=== PATIENT | female | born 1980 | race Caucasian/White ===

== ENCOUNTER 2017-10-09 05:28 | Day surgery (SDC) | payer OTHER ==
[~2017-10-09] VITALS: Ht 165.1 cm; Wt 91.6 kg
[2017-10-09] MEDS ORDERED: CEFAZOLIN 1 GM IVPB PREMIX 50 ML IV ONE (06:25)
[2017-10-09] MEDS ORDERED: CEFAZOLIN SOD 1 GM/ ISO 50 ML PREMIX IV ONE (07:00)
[2017-10-09] MEDS ORDERED: LR 1,000 ML IV SCH (09:37)
[2017-10-09] MEDS ORDERED: MEPERIDINE HCL/PF 25 MG/ML DISP.SYRIN IVP PRN (09:45)
[2017-10-09] MEDS ORDERED: HYDROmorphone 1 MG INJ. 1 MG/ML AMPUL IVP PRN (09:45)
[2017-10-09] MEDS ORDERED: HYDROmorphone 2 MG/ML VIAL IVP PRN ×2 (09:45)
[2017-10-09] MEDS ORDERED: ONDANSETRON HCL 4 MG/2 ML VIAL IVP PRN (10:30)
[2017-10-09] MEDS ORDERED: IBUPROFEN 800 MG TABLET PO PRN (10:30)
[2017-10-09] MEDS ORDERED: OXYCODONE/ACETAMINOPHEN 5-325 TABLET PO PRN ×2 (10:30)
[2017-10-09] MEDS ORDERED: LR 1,000 ML IV.SOLN IV ONE (10:50)
[2017-10-09] MEDS ORDERED: BUPIVACAINE /PF 0.5% 30 ML VIAL INJ ONE (10:50)
[2017-10-09] MEDS ORDERED: NS 1000 ML BAG IV ONE (10:50)
[2017-10-09] MEDS ORDERED: NS IRRIG SOLN 1000 ML IR ONE (10:50)
[2017-10-09] MEDS ORDERED: KETOROLAC TROMETHAMINE 30 MG VIAL IVP ONE (10:50)
[2017-10-09] MEDS ORDERED: PROPOFOL 200MG/ 20ML VIAL (DIPRIVAN) IV ONE (10:50)
[2017-10-09] MEDS ORDERED: LIDOCAINE/EPI 2% 1:100000 20 ML VIAL INJ ONE (10:50)
[2017-10-09] MEDS ORDERED: ROCURONIUM BROMIDE 10 MG/ML (ZEMURON) IV ONE (10:50)
[2017-10-09] MEDS ORDERED: SEVOFLURANE 15 MIN GAS INH ONE (10:50)
[2017-10-09] MEDS ORDERED: MIDAZOLAM HCL 5 MG/ML VIAL (VERSED) IV ONE (10:50)
[2017-10-09] MEDS ORDERED: fentaNYL CITRATE 250 MCG/5 ML AMP IV ONE (10:50)
[2017-10-09] MEDS ORDERED: DEXAMETHASONE SOD PHOSPHATE 4 MG/ML VIAL IVP ONE (10:50)
[2017-10-09] MEDS ORDERED: ONDANSETRON HCL 4 MG/2 ML VIAL IVP ONE (10:50)
[2017-10-09] MEDS ORDERED: HYDROmorphone 2 MG/ML VIAL ONE (10:55)
[2017-10-09 11:40] VITALS: BP_SYST 106
[2017-10-09] MEDS ORDERED: OXYCODONE/ACETAMINOPHEN 5-325 TABLET ONE (11:44)
[2017-10-09] MEDS ORDERED: DIPHENHYDRAMINE INJ 50 MG/ML VIAL ONE (11:58)
[2017-10-09] MEDS ORDERED: DIPHENHYDRAMINE INJ 50 MG/ML VIAL IM ONE (12:00)
[2017-10-09] MEDS ORDERED: DIPHENHYDRAMINE INJ 50 MG/ML VIAL IVP ONE (12:00)
== END 2017-10-09 14:30 | disposition home or self-care (01) ==
LOC: SDS 05:28 → SMU 05:33 → SDS 14:30
PROVIDERS: ATTEND Obstetrics & Gynecology
DX: N72 Inflammatory disease of cervix uteri (principal); N70.11 Chronic salpingitis; F41.9 Anxiety disorder, unspecified; E66.01 Morbid (severe) obesity due to excess calories; Q04.9 Congenital malformation of brain, unspecified; Z88.5 Allergy status to narcotic agent; Z79.899 Other long term (current) drug therapy; Z98.51 Tubal ligation status; Z98.890 Other specified postprocedural states; Z87.891 Personal history of nicotine dependence; Z87.898 Personal history of other specified conditions
CPT/HCPCS: 58571; 36415; 86886; 86900; 86901; 88307; J0690; J1100; J1170; J1200; J1885; J2250; J2405; J2704; J3010; J3490; J7030; J7120; E0190

== ENCOUNTER 2022-03-25 17:51 | Emergency (ER) | payer OTHER ==
[~2022-03-25] VITALS: Ht 167.6 cm; Wt 102.5 kg
[2022-03-25 18:16] VITALS: BP_SYST 127
--- NOTE | 2022-03-25 19:40 | NUR ---
Pt came from home with c/o pain with urination since March 15. She reports that yesterday she started having body aches, fever and right flank pain 10/10. A&O x 4, ambulation, and follows simple commands. Denies N/V, and blood in the urine. Safety precautions are in place and connected to the monitor. is at bedside.
--- NOTE | 2022-03-25 19:40 | NUR ---
Dr. Munguia at bedside.
[2022-03-25 19:41] LABS: BASOPHILS # (AUTO) 0.1 K/uL (0.0-0.2); BASOPHILS % (AUTO) 0.6 % (0.0-2.0); EOSINOPHILS # (AUTO) 0.1 K/uL (0.0-0.4); EOSINOPHILS % (AUTO) 0.6 % (0.0-4.0); HEMATOCRIT 41.3 % (36-48); HEMOGLOBIN 14.3 g/dL (12.0-16.0); LYMPHOCYTES # (AUTO) 1.3 K/uL (1.0-5.5); LYMPHOCYTES % (AUTO) 15.4 % (20.5-51.5); MEAN CORPUSCULAR HEMOGLOBIN 31 pg (27-31); MEAN CORPUSCULAR HGB CONC 35 % (32-36); MEAN CORPUSCULAR VOLUME 90 fL (79.0-98.0); MONOCYTES # (AUTO) 0.5 K/uL (0.0-1.0); MONOCYTES % (AUTO) 6.4 % (1.7-9.3); NEUTROPHILS # (AUTO) 6.6 K/uL (1.8-7.7); PLATELET COUNT (AUTO) 228 K/uL (130-430); RED BLOOD CELL COUNT(AUTO) 4.61 MIL/uL (4.2-6.2); RED CELL DISTRIBUTION WIDTH 13.5 % (9.0-15.0); WHITE BLOOD COUNT (AUTO) 8.6 K/uL (4.8-10.8)
[2022-03-25] MEDS ORDERED: KETOROLAC TROMETHAMINE 30 MG VIAL IVP ONE (19:45)
[2022-03-25] MEDS ORDERED: NACL 0.9% 1,000 ML IV ONE (19:45)
[2022-03-25 19:50] LABS: BILIRUBIN,URINE NEGATIVE (NEGATIVE); BLOOD, URINE 2+ (NEGATIVE); CLARITY/URINE SL CLOUDY (CLEAR); COLOR,URINE YELLOW (YELLOW); GLUCOSE,URINE NEGATIVE (NEGATIVE); KETONES,URINE 1+ (NEGATIVE); LEUKOCYTE ESTERASE ,URINE 3+ (NEGATIVE); NITRITE, URINE POSITIVE (NEGATIVE); PH,URINE 6.5 (5.0-8.0); PROTEIN URINE 1+ (NEGATIVE)
--- NOTE | 2022-03-25 19:54 | NUR ---
PT to CT via wheelchair, accompanied by staff.
[2022-03-25 19:57] LABS: BACTERIA,URINE MODERATE /HPF (None Seen); MUCUS,URINE None Seen /LPF (None Seen); RBC,URINE 0-3 /HPF (0-3); WBC,URINE >100 /HPF (0-3)
[2022-03-25 19:59] LABS: CALCIUM 8.4 mg/dL (8.4-11.0); CREATININE 0.98 mg/dL (0.55-1.30)
--- NOTE | 2022-03-25 20:00 | NUR ---
Pt back from CT accompanied by staff.
[2022-03-25 20:13] LABS: ALBUMIN 3.3 g/dL (3.4-4.8); TOTAL BILIRUBIN 0.9 mg/dL (0.0-1.0)
[2022-03-25] MEDS ORDERED: cefTRIAXone 1 GM in D5W 50 ML IV ONE (20:45)
[2022-03-25] MEDS ORDERED: POTASSIUM CHLORIDE 20 MEQ/PKT PACKET PO ONE (20:45)
[2022-03-25] MEDS ORDERED: ACETAMINOPHEN 325 MG TABLET PO ONE (20:45)
[2022-03-25] MEDS ORDERED: IBUP-1969 PO (21:26)
[2022-03-25] MEDS ORDERED: CEPH-548 PO (21:26)
[2022-03-25] MEDS ORDERED: cefTRIAXone 1 GM VIAL ONE (22:00)
[2022-03-25] MEDS ORDERED: HYDROcodone/ACETAMIN 5-325 MG TAB (NORCO/ VICODIN) PO ONE (22:45)
[2022-03-25 23:39] VITALS: BP_SYST 99
--- NOTE | 2022-03-25 23:39 | NUR ---
Patient given written and verbal discharge instructions and verbalizes understanding. ER Dr. Munguia discussed with patient the results and treatment provided. Patient in stable condition. ID arm band removed. IV catheter removed intact and dressing applied, no active bleeding. Rx of cephalexin and ibuprofen given. Patient educated on pain management and to follow up with PMD. Pain Scale 3. Opportunity for questions provided and answered. Medication side effect fact sheet provided.
== END 2022-03-25 23:39 | disposition home or self-care (01) ==
LOC: SED 17:51
DX: N10 Acute pyelonephritis (principal)
CPT/HCPCS: 36415; 74176; 76376; 80053; 81000; 81025; 85025; 87040; 87086; 96361; 96365; 96375; 99284; J0696; J1885; J7030